=== PATIENT | female | born 1970 | race Caucasian/White ===

== ENCOUNTER 2016-10-27 16:03 | Inpatient (IN) ==
--- NOTE | 2016-10-27 16:43 | EKG Report ---
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
--- NOTE | 2016-10-27 16:45 | Emergency Department Note ---
Arrival - Arrival Chief Complaint: Chest Pain Stated Complaint: chest pains ED Nursing Triage Note: pt reports that she started having pain in center of chest that radiates under both arms. denies nausea and diaphoresis. has been seen by school nurse twice and given tums then after school given an asa and sent to er. Mode of Arrival: Ambulatory Limitations: No Limitations Source: Patient Time Seen by Provider: 10/27/16 16:33 - History of Present Illness HPI Narrative: The patient complains of dull chest pain with occasional sharp episodes across the upper anterior chest bilaterally, extending into the axilla bilaterally. She feels like the pain is also radiating into her left arm. She denies any nausea or vomiting. She has had some mild shortness of breath and some very minimal diaphoresis on her upper lip. She notes no exacerbating or relieving factors and has not had these symptoms in the past. She does have a history of mitral valve prolapse and has palpitations approximately once per week. She denies any fever, cough, rhinorrhea, sore throat or other recent illness. She has no history of high blood pressure, diabetes, high cholesterol or heart disease. She is not a smoker. She does have a history of some CAD in her family. Date of Last Menstrual Period: hyst Allergies/Adverse Reactions: Allergies Allergy/AdvReac Type Severity Reaction Status Date / Time codeine Allergy Nausea Verified 10/27/16 16:14 Home Medications: Home Medications Medication Instructions Recorded Confirmed Type Multivitamin [Multivitamins] 1 each PO DAILY 10/27/16 10/27/16 History Review of System - Review of System 12 point system: reviewed and no additional remarkable complaints except as stated - Review of System Constitutional: Present: diaphoresis (Minimal). Absent: fever Head/Ears/Nose/Throat: Absent: nasal drainage, sore throat Respiratory: Absent: cough, respiratory distress, wheezing Cardiovascular: Present: chest pain, palpitations. Absent: dyspnea on exertion , orthopnea, edema, syncope Gastrointestinal: Absent: abdominal pain, nausea, vomiting Musculoskeletal: Present: arm pain. Absent: back pain, neck pain Medical,Surgical,& Family Hx - Medical History Cardio: History of: Valvular Heart Disease (mitral valve prolapse) - Surgical History Reproductive Surgeries: Surgical HX of;: Hysterectomy - Family History Family History: noncontributory - Social History Smoking Status: Never smoker Exam Physical Examination: GENERAL: Alert. No acute distress. HEENT: Normocephalic and atraumatic. There is no nasal drainage. No pharyngeal erythema or exudate. NECK: Normal inspection. Supple. No lymphadenopathy or meningismus. LUNGS: No respiratory distress. Clear to auscultation bilaterally, no wheezes, rales or rhonchi. HEART: Regular rate and rhythm. Chest: Diffuse tenderness across the anterior chest into the axillary area bilaterally. Reproduces pain. ABDOMEN: Soft, nontender and nondistended with normoactive bowel sounds. BACK: Normal inspection. SKIN: Color normal. Warm and dry. EXTREMITIES: Nontender. Normal range of motion. No pedal edema. NEUROLOGICAL/PSYCHIATRIC: Alert and oriented -3 with normal mood and affect. Cranial nerves normal. No motor or sensory deficit. Vital Signs: Vital Signs Temperature 97.4 F L 10/27/16 16:09 Pulse Rate 71 10/27/16 16:09 Respiratory Rate 20 10/27/16 16:09 Blood Pressure 144/100 10/27/16 16:09 O2 Sat by Pulse Oximetry 100 10/27/16 16:09 Course - Reevaluation(s) Reevaluation #1: The patient is asymptomatic at present and having no chest pain. It is really surprising that her troponin and CK came back elevated as I suspected that this was chest wall pain. I have discussed this patient with Dr. Bates and will admit to the ICU where she will see her. Time: 18:10 Results - Labs CBC & BMP: 10/27/16 17:07 10/27/16 17:07 Lab Results: I have reviewed the patients labs Labs: Laboratory Tests 10/27/16 10/27/16 17:07 17:07 INR 1.0 D-Dimer, Quantitative <= 0.5 AST 54 H ALT 43 Total Creatine Kinase 371 H CK-MB (CK-2) 55.0 H CK and CKMB Interp 14.8 Troponin I 5.780 H Lipase 126.0 - Impressions EKG shows a normal sinus rhythm at 66. Chest x-ray shows no acute abnormality. Disposition Clinical Impression: Chest pain, Non-ST elevated myocardial infarction Case discussed with: patient Disposition: Disch To Home/Self Care Condition: Stable Time of Disposition: 18:11
--- NOTE | 2016-10-27 17:13 | XRay Report ---
History: Chest pain Date: 10/27/2016 Study: Chest x-ray AP portable Comparison exam: October 13, 2014 chest x-ray The cardiomediastinal silhouette and pulmonary vasculature are unremarkable. The lungs and pleural spaces are clear. The osseous structures are unremarkable. Impression: No acute cardiopulmonary process. No significant interval change PROCEDURE INTERPRETED AT [facility] DEPARTMENT OF RADIOLOGY Final Report Signed by: Dr. Maylin Smith
[2016-10-27 17:14] LABS: Basophils % 0.3 % (0.0-0.8); Eosinophils # 0.1 10*3/uL (0.0-0.87); Eosinophils % 1.2 % (0.00-10.9); Hematocrit 37.5 VOL% (35.7-47.0); Hemoglobin 13.1 GM/DL (12.0-16.0); Immature Granulocytes % 0.4 %; Immature Granulocytes Absolute 0.04 #; Lymphocytes # 2.5 10*3/uL (1.4-4.0); Lymphocytes % 25.5 % (21.3-54.2); Mean Corpuscular HGB Conc 34.9 GM/DL (32-36); Mean Corpuscular Hemoglobin 30 PG (27-34); Mean Platelet Volume 9.8 FL (9.6-12.0); Monocytes # 0.7 10*3/uL (0.11-0.8); Monocytes % 6.9 % (1.7-12.7); Neutrophils # 6.4 10*3/uL (1.4-7.4); Neutrophils % 65.7 % (38.7-73.9); Platelet Count 254 T/CUMM (130-400); Red Blood Count 4.31 MC/CUMM (3.8-5.5); Red Cell Distribution Width 13.3 % (9.3-17.3); White Blood Count 9.7 T/CUMM (4-12)
[2016-10-27 17:35] LABS: D-Dimer <= 0.5 MG/L FEU; PT Patient Result 10.7 SECS; Partial Thromboplastin Time 29.1 SECS (0-40)
[2016-10-27 17:59] LABS: Alanine Aminotransferase 43 U/L (13-56); Albumin 3.9 G/DL (3.4-5.0); Alkaline Phosphatase 55 U/L (45-117); Amylase 35 U/L (25-115); Aspartate Amino Transferase 54 U/L (0-37); Bilirubin,Total < 0.39 MG/DL (0.2-1.0); Blood Urea Nitrogen 11 MG/DL (7-18); CKMB % 14.8 %; Calcium 9.7 MG/DL (8.5-10.1); Glucose 79 MG/DL (74-106); Magnesium 1.9 MG/DL (1.8-2.4); Osmolality,Calculated 272.7 MOS/KG (273-304); Potassium 3.4 MMOL/L (3.5-5.1); Sodium 138 MMOL/L (136-145); Total Protein 7.2 G/DL (6.4-8.3)
[2016-10-27] MEDS ORDERED: ENOXAPARIN 80 MG/0.8 ML SYRINGE SUBCUT STA (18:16)
[2016-10-27] MEDS ORDERED: MAGNESIUM SULF RIDER 4 GM in PREMIX 1 EACH IV PRN (18:26)
[2016-10-27] MEDS ORDERED: MAGNESIUM SULF RIDER 2 GM in PREMIX 1 EACH IV PRN (18:26)
[2016-10-27] MEDS ORDERED: ONDANSETRON 4 MG/2 ML VIAL IV PRN (18:26)
[2016-10-27] MEDS ORDERED: PROMETHAZINE 25 MG/1 ML VIAL IM PRN (18:26)
[2016-10-27] MEDS ORDERED: MORPHINE 2 MG/1 ML SYRINGE IV PRN (18:26)
[2016-10-27] MEDS ORDERED: BISACODYL 5 MG TABLET PO PRN (18:35)
[2016-10-27] MEDS ORDERED: ALUM/MAG/SIMETH/LIDO VISC 1:1 30 ML BOTTLE PO PRN (18:35)
[2016-10-27] MEDS ORDERED: MAGNESIUM HYDROXIDE SUSP 30 ML UDCUP PO PRN (18:35)
[2016-10-27] MEDS ORDERED: NITROGLYCERIN SL 0.4 MG TABLET SL PRN (18:35)
[2016-10-27] MEDS ORDERED: ZALEPLON 5 MG CAPSULE PO PRN (18:35)
--- NOTE | 2016-10-27 18:35 | Cardiology History & Physical ---
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 Cantu is a 46 year old female without a prior cardiac history, no clear cardiac risk factors who presented to the emergency room for chest pain. 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 She began experiencing chest pressure. It was a discomfort that radiated across her bilateral shoulders, and eventually into her bilateral armpit and then the inner portion of her left arm. There were occasionally associations of diaphoresis. There was no clear triggers or alleviators. She went to the school nurse and tried taking Tums which did not resolve her symptoms. Finally, at 330 her son was called to pick her up and bring her to the emergency room. Her symptoms finally resolved at approximately 530 this evening and she is currently chest pain-free. She has not had any dyspnea on exertion, change in exercise tolerance. She does not use recreational drugs, does not smoke. She has been prescribed hormones (she has a hysterectomy) but never filled this prescription. She has no other acute complaints and her 12 point review of systems is otherwise negative in detail. She has no history of GI bleeding and no contraindication to taking dual antiplatelet therapy. Impression and plan: 1. Non-ST elevation myocardial infarction-we will initiate anticoagulation, dual antiplatelet therapy, statin therapy, beta-cindi therapy. We will check an echocardiogram and fasting lipid profile. We will proceed with left heart catheterization in the morning. I have discussed the role, risks and benefits of cardiac catheterization with the patient and she is agreeable to proceeding. We will apply Nitropaste for symptom control. Home Medications Medication Instructions Recorded Confirmed Type Multivitamin [Multivitamins] 1 each PO DAILY 10/27/16 10/27/16 History Allergies Allergy/AdvReac Type Severity Reaction Status Date / Time codeine Allergy Nausea Verified 10/27/16 16:14 12 point system: reviewed and no additional remarkable complaints except as stated Medical,Surgical,& Family Hx - Medical History Cardio: History of: Valvular Heart Disease (mitral valve prolapse) - Surgical History Reproductive Surgeries: Surgical HX of;: Hysterectomy - Social History Smoking Status: Never smoker Marital Status: Lives With:: Spouse Functional capacity: independent ambulation Cardiology Physical Exam - Constitutional Vitals: Vital Signs Temp Pulse Resp BP Pulse Ox 97.4 F L 71 20 144/100 100 10/27/16 16:09 10/27/16 16:09 10/27/16 16:09 10/27/16 16:09 10/27/16 16:09 Intake and Output 10/27/16 10/27/16 10/27/16 07:59 15:59 23:59 Other: Weight 58.967 kg Patient Weight 10/27/16 23:59 Weight 58.967 kg Exam: General appearance: normal weight, no acute distress - Head Head exam: Present: normal inspection, normocephalic, atraumatic. Absent: hematoma, laceration - Eye Eye exam: Present: EOMI. Absent: conjunctival injection, nystagmus, periorbital swelling, scleral icterus, laceration to eyelids Pupils: Present: PERRL. Absent: constricted, dilated, fixed, irregular, unequal - ENT ENT exam: Present: normal exam, normal external ear exam - Neck Neck exam: Present: normal inspection. Absent: lymphadenopathy, meningismus, tenderness, thyromegaly - Respiratory Respiratory exam: Present: clear to auscultation bilaterally. Absent: accessory muscle use, chest wall tenderness - Cardiovascular Cardiovascular exam: Present: regular rate and rhythm. Absent: carotid bruit, gallop, JVD, rubs - GI/Abdominal GI/Abdominal exam: Present: normal bowel sounds, soft. Absent: distended, firm , guarding, hernia, mass, tenderness, rebound. - Extremities Exam Extremities exam: Present: normal inspection, normal capillary refill. Absent: calf tenderness, edema - Back Exam Back exam: Present: normal inspection. Absent: muscle spasm, vertebral tenderness - Neurological Exam Neurological exam: Present: alert, oriented X3, grossly intact without resting or intention tremor - Psychiatric Psychiatric exam: Present: normal affect, normal mood - Skin Skin exam: Present: normal color, warm, dry, intact. Absent: cyanosis, diaphoretic, rash, urticaria Result/EKG - Labs CBC & BMP: 10/27/16 17:07 10/27/16 17:07 Lab Results: I have reviewed the past 24 hour labs Labs: Laboratory Results - last 24 hr 10/27/16 10/27/16 10/27/16 17:07 17:07 17:07 WBC 9.7 RBC 4.31 Hgb 13.1 Hct 37.5 MCV 87.0 MCH 30 MCHC 34.9 RDW 13.3 Plt Count 254 MPV 9.8 Neut % (Auto) 65.7 Lymph % (Auto) 25.5 [place] % (Auto) 6.9 Eos % (Auto) 1.2 Baso % (Auto) 0.3 Neut # (Auto) 6.4 Lymph # (Auto) 2.5 [place] # (Auto) 0.7 Eos # (Auto) 0.1 Baso # (Auto) 0.0 Immature Gran % 0.4 Nucleated RBC % 0.0 Immature Gran # 0.04 Nucleated RBCs # 0.00 Immature Plt Fraction 0.0 INR 1.0 PT Patient/Control Mix 10.7 D-Dimer, Quantitative <= 0.5 Circ Anticoag PTT 29.1 Sodium 138 Potassium 3.4 L Chloride 106 Carbon Dioxide 24 Anion Gap 11.4 BUN 11 Creatinine 0.60 GFR Calculation 100 BUN/Creatinine Ratio 18.00 Glucose 79 Calculated Osmolality 272.7 L Calcium 9.7 Magnesium 1.9 Total Bilirubin < 0.39 AST 54 H ALT 43 Alkaline Phosphatase 55 Total Creatine Kinase 371 H CK-MB (CK-2) 55.0 H CK and CKMB Interp 14.8 Troponin I 5.780 H Total Protein 7.2 Albumin 3.9 Globulin 3.3 Albumin/Globulin Ratio 1.1 Amylase 35 Lipase 126.0 - Diagnostic Findings Procedure: Chest x-ray: report reviewed by me - EKG EKG results: interpreted by me, sinus rhythm EKG shows: ventricular tachycardia
[2016-10-27] MEDS ORDERED: ENOXAPARIN 80 MG/0.8 ML SYRINGE SUBCUT ONE (18:38)
[2016-10-27] MEDS ORDERED: TICAGRELOR 90 MG TABLET PO ONE (19:54)
[2016-10-27] MEDS: SODIUM CHLORIDE 0.45% 1,000 ML IV SCH (20:11)
[2016-10-27] MEDS: TICAGRELOR 90 MG TABLET PO SCH (20:17)
[2016-10-27] MEDS: ATORVASTATIN 40 MG TABLET PO SCH (20:45)
[2016-10-27] MEDS: METOPROLOL TARTRATE 25 MG TABLET PO SCH (20:46)
[2016-10-27 21:20] LABS: CKMB % 14.8 %
[2016-10-27 21:23] LABS: Troponin I Only 19.2 NG/ML (0.00-0.045)
--- NOTE | 2016-10-27 22:58 | EKG Report ---
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
[2016-10-28] MEDS: ACETAMINOPHEN 325 MG TABLET PO PRN (00:05)
[2016-10-28] MEDS: NITROGLYCERIN 2% OINT 1 INCH/GM PACK TOP SCH ×3 (00:05→13:19)
[2016-10-28 01:03] LABS: CKMB % 13.8 %
--- NOTE | 2016-10-28 01:34 | EKG Report ---
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
[2016-10-28 05:26] LABS: Basophils % 0.4 % (0.0-0.8); Eosinophils # 0.1 10*3/uL (0.0-0.87); Eosinophils % 1.7 % (0.00-10.9); Hematocrit 34.2 VOL% (35.7-47.0); Hemoglobin 11.8 GM/DL (12.0-16.0); Immature Granulocytes % 0.6 %; Immature Granulocytes Absolute 0.04 #; Lymphocytes # 1.7 10*3/uL (1.4-4.0); Lymphocytes % 23.7 % (21.3-54.2); Mean Corpuscular HGB Conc 34.5 GM/DL (32-36); Mean Corpuscular Hemoglobin 30 PG (27-34); Mean Corpuscular Volume 87.7 FL (87-102); Mean Platelet Volume 10.4 FL (9.6-12.0); Monocytes # 0.6 10*3/uL (0.11-0.8); Monocytes % 8.4 % (1.7-12.7); Neutrophils # 4.6 10*3/uL (1.4-7.4); Neutrophils % 65.2 % (38.7-73.9); Platelet Count 223 T/CUMM (130-400); Red Cell Distribution Width 13.4 % (9.3-17.3); White Blood Count 7.1 T/CUMM (4-12)
[2016-10-28 05:51] LABS: Calcium 8.6 MG/DL (8.5-10.1); Magnesium 1.8 MG/DL (1.8-2.4); Osmolality,Calculated 278.3 MOS/KG (273-304); Potassium 3.7 MMOL/L (3.5-5.1)
[2016-10-28 05:53] LABS: Risk Ratio 2.88; VLDL CHOLESTEROL 16.4 MG/DL
[2016-10-28 05:54] LABS: CKMB % 13.5 %
[2016-10-28 05:57] LABS: Troponin I Only 18.2 NG/ML (0.00-0.045)
--- NOTE | 2016-10-28 07:38 | EKG Report ---
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
[2016-10-28] MEDS ORDERED: ENOXAPARIN 80 MG/0.8 ML SYRINGE SUBCUT SCH (09:00)
[2016-10-28] MEDS: TICAGRELOR 90 MG TABLET PO SCH ×2 (09:07→20:09)
[2016-10-28] MEDS: PANTOPRAZOLE 40 MG TABLET PO SCH (09:07)
[2016-10-28] MEDS: METOPROLOL TARTRATE 25 MG TABLET PO SCH (09:17)
[2016-10-28] MEDS: SODIUM CHLORIDE 0.45% 1,000 ML IV SCH ×2 (09:54→23:32)
[2016-10-28] MEDS ORDERED: HEPARIN/NACL 0.9% 2 UNITS/ML 1,000 ML IV ONE (11:09)
[2016-10-28] MEDS ORDERED: LIDOCAINE 1% 20 ML VIAL ONE (11:09)
[2016-10-28] MEDS ORDERED: SODIUM BICARBONATE 2.4 MEQ/5 ML VIAL ONE (11:11)
[2016-10-28] MEDS ORDERED: fentaNYL 100 MCG/2 ML VIAL ONE (11:29)
[2016-10-28] MEDS ORDERED: MIDAZOLAM 2 MG/2 ML VIAL ONE (11:29)
--- NOTE | 2016-10-28 11:35 | Cardiology Progress Note ---
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 EKG was unremarkable, cardiac biomarkers have been positive. October 28, 2016: The patient has done well overnight and did not have any recurrent chest pain. Nitropaste was discontinued due to hypotension. She does have a complaint of a headache. Impression and plan: 1. Non-ST elevation myocardial infarction: The patient has not had any postinfarct angina. She has received dual antiplatelet therapy, anticoagulation , statin therapy and beta blockade. We are going to proceed with left heart catheterization today. Exam (Progress Note) - Constitutional Vitals: Period Temp Pulse Resp BP Sys/Meehan Pulse Ox Last 24 Hr 97.1 F-98.3 F 53-109 12-21 74-144/43-100 97-100 Exam: General appearance: normal weight, no acute distress - Head Head exam: Present: normal inspection, normocephalic, atraumatic. Absent: hematoma, laceration - Eye Eye exam: Present: EOMI. Absent: conjunctival injection, nystagmus, periorbital swelling, scleral icterus, laceration to eyelids Pupils: Present: PERRL. Absent: constricted, dilated, fixed, irregular, unequal - ENT ENT exam: Present: normal exam, normal external ear exam - Neck Neck exam: Present: normal inspection. Absent: lymphadenopathy, meningismus, tenderness, thyromegaly - Respiratory Respiratory exam: Present: clear to auscultation bilaterally. Absent: accessory muscle use, chest wall tenderness - Cardiovascular Cardiovascular exam: Present: regular rate and rhythm. Absent: carotid bruit, gallop, JVD, rubs - GI/Abdominal GI/Abdominal exam: Present: normal bowel sounds, soft. Absent: distended, firm , guarding, hernia, mass, tenderness, rebound. - Extremities Exam Extremities exam: Present: normal inspection, normal capillary refill. Absent: calf tenderness, edema - Back Exam Back exam: Present: normal inspection. Absent: muscle spasm, vertebral tenderness - Neurological Exam Neurological exam: Present: alert, oriented X3, grossly intact without resting or intention tremor - Psychiatric Psychiatric exam: Present: normal affect, normal mood - Skin Skin exam: Present: normal color, warm, dry, intact. Absent: cyanosis, diaphoretic, rash, urticaria Result/EKG - Labs CBC & BMP: 10/28/16 04:39 10/28/16 04:39 Lab Results: I have reviewed the past 24 hour labs Labs: Laboratory Results - last 24 hr 10/27/16 10/27/16 10/27/16 17:07 17:07 17:07 WBC 9.7 RBC 4.31 Hgb 13.1 Hct 37.5 MCV 87.0 MCH 30 MCHC 34.9 RDW 13.3 Plt Count 254 MPV 9.8 Neut % (Auto) 65.7 Lymph % (Auto) 25.5 [place] % (Auto) 6.9 Eos % (Auto) 1.2 Baso % (Auto) 0.3 Neut # (Auto) 6.4 Lymph # (Auto) 2.5 [place] # (Auto) 0.7 Eos # (Auto) 0.1 Baso # (Auto) 0.0 Immature Gran % 0.4 Nucleated RBC % 0.0 Immature Gran # 0.04 Nucleated RBCs # 0.00 Immature Plt Fraction 0.0 INR 1.0 PT Patient/Control Mix 10.7 D-Dimer, Quantitative <= 0.5 Circ Anticoag PTT 29.1 Sodium 138 Potassium 3.4 L Chloride 106 Carbon Dioxide 24 Anion Gap 11.4 BUN 11 Creatinine 0.60 GFR Calculation 100 BUN/Creatinine Ratio 18.00 Glucose 79 Calculated Osmolality 272.7 L Calcium 9.7 Magnesium 1.9 Total Bilirubin < 0.39 AST 54 H ALT 43 Alkaline Phosphatase 55 Total Creatine Kinase 371 H CK-MB (CK-2) 55.0 H CK and CKMB Interp 14.8 Troponin I 5.780 H Total Protein 7.2 Albumin 3.9 Globulin 3.3 Albumin/Globulin Ratio 1.1 Triglycerides Cholesterol LDL Cholesterol VLDL Cholesterol HDL Cholesterol Heart Disease Risk Ratio Amylase 35 Lipase 126.0 10/27/16 10/27/16 10/28/16 20:33 23:55 04:39 WBC RBC Hgb Hct MCV MCH MCHC RDW Plt Count MPV Neut % (Auto) Lymph % (Auto) [place] % (Auto) Eos % (Auto) Baso % (Auto) Neut # (Auto) Lymph # (Auto) [place] # (Auto) Eos # (Auto) Baso # (Auto) Immature Gran % Nucleated RBC % Immature Gran # Nucleated RBCs # Immature Plt Fraction INR PT Patient/Control Mix D-Dimer, Quantitative Circ Anticoag PTT Sodium Potassium Chloride Carbon Dioxide Anion Gap BUN Creatinine GFR Calculation BUN/Creatinine Ratio Glucose Calculated Osmolality Calcium Magnesium Total Bilirubin AST ALT Alkaline Phosphatase Total Creatine Kinase 649 H D 675 H 568 H CK-MB (CK-2) 96.3 H D 92.9 H 76.7 H D CK and CKMB Interp 14.8 13.8 13.5 Troponin I 19.200 H D 21.000 H 18.200 H Total Protein Albumin Globulin Albumin/Globulin Ratio Triglycerides Cholesterol LDL Cholesterol VLDL Cholesterol HDL Cholesterol Heart Disease Risk Ratio Amylase Lipase 10/28/16 10/28/16 10/28/16 04:39 04:39 04:39 WBC 7.1 RBC 3.90 Hgb 11.8 L Hct 34.2 L MCV 87.7 MCH 30 MCHC 34.5 RDW 13.4 Plt Count 223 MPV 10.4 Neut % (Auto) 65.2 Lymph % (Auto) 23.7 [place] % (Auto) 8.4 Eos % (Auto) 1.7 Baso % (Auto) 0.4 Neut # (Auto) 4.6 Lymph # (Auto) 1.7 [place] # (Auto) 0.6 Eos # (Auto) 0.1 Baso # (Auto) 0.0 Immature Gran % 0.6 Nucleated RBC % 0.0 Immature Gran # 0.04 Nucleated RBCs # 0.00 Immature Plt Fraction 0.0 INR PT Patient/Control Mix D-Dimer, Quantitative Circ Anticoag PTT Sodium 141 Potassium 3.7 Chloride 109 H Carbon Dioxide 27 Anion Gap 8.7 BUN 11 Creatinine 0.50 L GFR Calculation 119 BUN/Creatinine Ratio 22.00 H Glucose 87 Calculated Osmolality 278.3 Calcium 8.6 Magnesium 1.8 Total Bilirubin AST ALT Alkaline Phosphatase Total Creatine Kinase CK-MB (CK-2) CK and CKMB Interp Troponin I Total Protein Albumin Globulin Albumin/Globulin Ratio Triglycerides 82 Cholesterol 147 LDL Cholesterol 72.0 VLDL Cholesterol 16.4 HDL Cholesterol 51 Heart Disease Risk Ratio 2.88 Amylase Lipase - Diagnostic Findings Procedure: Chest x-ray: report reviewed by me - EKG EKG results: interpreted by me, sinus rhythm
--- NOTE | 2016-10-28 11:36 | History and Physical Update ---
Sedation H&P Update - Dictation Physical: refer to H&P completed by admitting physician - Physical Exam Mental Status: alert and oriented Heart: regular rate and rhythm Lung: clear to auscultation Abdomen: within normal limits Vitals: within normal limits - Sedation Plan for Sedation: moderate Patient Consent: Procedure disscussed with patient and patinet has consented., Risks and benefits were discussed with patient,including infection,, bleeding, injury to surrounding structures, seizure, temporary nerve, Patient understands and accepts potential risks/benefits and agrees to, proceed. ASA Class: IV Airway Assessment: Class I: Soft palate, uvula, fauces, pillars visible
[2016-10-28] MEDS ORDERED: diphenhydrAMINE 50 MG/1 ML VIAL ONE (11:45)
--- NOTE | 2016-10-28 12:21 | ECHO Report ---
Vaishali Cantu Exam Date: 10/28/2016 09:17 Referring Physician: Technologist: Age: 46 Ht (in): Wt (lb): Gender: F Exam Location: [facility] Echo Indications: BP: / HR: Rhythm: Sinus Technical Quality: Fair IMPRESSIONS Normal left ventricular size and function with ejection fraction estimated to be in the 60% range Mild aortic valve sclerosis with preserved excursion Mild mitral insufficiency Trace tricuspid insufficiency at velocities suggesting systolic PA pressures less than 20 mmHg MEASUREMENTS (Male / Female) Normal Values 2D ECHO LV Diastolic Diameter PLAX 3.7 cm 4.2 - 5.9 / 3.9 - 5.3 cm LV Systolic Diameter PLAX 2.2 cm LV Fractional Shortening PLAX 39.3 % IVS Diastolic Thickness 1.0 cm 0.6 - 1.0 / 0.6 - 0.9 cm LVPW Diastolic Thickness 1.3 cm 0.6 - 1.0 / 0.6 - 0.9 cm RV Internal Dim ED PLAX 2.0 cm Aortic Root Diameter 2.3 cm LA Systolic Diameter LX 3.1 cm 3.0 - 4.0 / 2.7 - 3.8 cm DOPPLER TR Peak Velocity 181.0 cm/s TR Peak Gradient 13.1 mmHg FINDINGS Left Ventricle Right Ventricle Right Atrium Left Atrium Mitral Valve Aortic Valve Tricuspid Valve Pulmonic Valve Pericardium Aorta Jose Liu MD (Electronically Signed) Final Date: 28 October 2016 12:20
--- NOTE | 2016-10-28 12:49 | Cardiology Operative Report ---
Date of Procedure:: 10/28/16 Pre-op diagnosis: Non-ST elevation myocardial infarction Post-op diagnosis: other (No significant atherosclerosis. Haziness noted in the distal first obtuse marginal artery could represent thrombus) Procedure: 1. Selective left and right coronary angiography. 2. Left heart catheterization with left ventriculogram. 3. Right iliac angiography to rule out vascular complications. 4. Application of minx hemostasis device to the right femoral arteriotomy site. Impression: 1. No significant atherosclerosis. There is a subtle, faint haziness in a distal branch and the distal portion of the first obtuse marginal artery where the vessel caliber is less than 1 mm that could represent thrombus. This vessel appears to supply the apex. 2. Right dominant coronary arteries. 3. Ejection fraction 55 %. 4. Angiographically normal right iliac artery without evidence of vascular complications. Plan: 1. Medical management. Equipment: Diagnostic 6 Taiwanese JL4, 4 Taiwanese JR4, 6 Taiwanese pigtail catheters. Hemodynamics: Aortic pressure 99/63 mmHg, left ventricular pressure 94/14 mmHg, LVEDP 9 mmHg Sedation: Versed 1 mg, fentanyl 25 mcg, Benadryl 25 mg Procedure: After informed consent was obtained the patient was prepped and draped in sterile fashion. The right groin was infiltrated with 1% lidocaine and the right femoral artery was accessed via modified Seldinger technique using a micropuncture needle and a 6 Taiwanese femoral arterial sheath was placed. All catheter exchanges were performed over a guidewire under fluoroscopic guidance. Diagnostic 6 [place]ese JL4 and JR4 catheters were advanced to the left and right coronary arteries respectively and multiple cineangiograms were performed in varying degrees of obliquity and angulation. There was pressure waveform dampening upon introduction of the 6 Taiwanese JR4 catheter, so this was exchanged for a 4 Taiwanese JR4 catheter. Cine angiogram was performed with a 4 Taiwanese catheter. Thereafter a pigtail catheter was advanced into the left ventricle where hemodynamics were obtained followed by left ventriculogram. At conclusion of the procedure right iliac angiography was performed to rule out vascular complications. At conclusion of the procedure a minx hemostasis device was successfully applied to the right femoral arteriotomy site. Findings: 1. The left main artery is angiographically normal. 2. The left anterior descending artery extends towards the apex but does not wrap around. It becomes small and tapered from the mid to distal segment. There is a small first diagonal branch, then a larger second diagonal artery that is branching and appears to supply the lateral wall. There is no significant atherosclerosis in the LAD system. 3. There is an intermediate ramus branch that is small and free of significant disease. 4. The circumflex artery gives rise to a large, branching first marginal artery , and then 3 smaller marginal branches as it continues along the AV groove. There is no significant atheromatous disease identified. There is a region involving a distal branch of the first marginal artery, as well as the segment of the distal first marginal artery at the origin of the affected branch, that is subtly and faintly hazy. This is suspected to represent resolving thrombus. The vessel calibers at this site are less than 1 mm. The course of these vessels appears to supply the ventricular apex. 5. The right coronary artery is a dominant vessel, and free of significant disease. 6. Ejection fraction is 55 % with apical akinesis. 7. No significant mitral regurgitation. 8. No significant aortic stenosis. 9. The right iliac artery is angiographically normal without evidence of vascular complications. Contrast use: Visipaque 64 cc Fluoro time: 2.9 minutes Complications: none Specimens removed: none Devices implanted: Mynx Anesthesia: moderate conscious sedation Surgeon / Physician: Olga Bates Die Grinder: none (Sandra Hines) Estimated blood loss: minimal Specimens: none sent Condition: stable Disposition: ICU/CCU
[2016-10-28] MEDS: ASPIRIN EC 81 MG TABLET PO SCH (13:18)
[2016-10-28] MEDS: ATORVASTATIN 40 MG TABLET PO SCH (20:09)
[2016-10-29 04:38] LABS: Basophils % 0.3 % (0.0-0.8); Eosinophils # 0.2 10*3/uL (0.0-0.87); Hematocrit 34.4 VOL% (35.7-47.0); Hemoglobin 11.8 GM/DL (12.0-16.0); Immature Granulocytes % 0.3 %; Immature Granulocytes Absolute 0.03 #; Lymphocytes # 1.7 10*3/uL (1.4-4.0); Lymphocytes % 19.7 % (21.3-54.2); Mean Corpuscular HGB Conc 34.3 GM/DL (32-36); Mean Corpuscular Hemoglobin 30 PG (27-34); Mean Corpuscular Volume 88.7 FL (87-102); Mean Platelet Volume 10.2 FL (9.6-12.0); Monocytes # 0.6 10*3/uL (0.11-0.8); Monocytes % 6.8 % (1.7-12.7); Neutrophils # 6.2 10*3/uL (1.4-7.4); Neutrophils % 70.9 % (38.7-73.9); Platelet Count 216 T/CUMM (130-400); Red Blood Count 3.88 MC/CUMM (3.8-5.5); Red Cell Distribution Width 13.6 % (9.3-17.3); White Blood Count 8.7 T/CUMM (4-12)
[2016-10-29 05:16] LABS: Calcium 8.1 MG/DL (8.5-10.1); Osmolality,Calculated 278.3 MOS/KG (273-304); Potassium 3.9 MMOL/L (3.5-5.1)
[2016-10-29] MEDS ORDERED: ENOXAPARIN 40 MG/0.4 ML SYRINGE SUBCUT SCH (06:30)
[2016-10-29] MEDS: ASPIRIN EC 81 MG TABLET PO SCH (08:53)
[2016-10-29] MEDS: TICAGRELOR 90 MG TABLET PO SCH (08:53)
[2016-10-29] MEDS: PANTOPRAZOLE 40 MG TABLET PO SCH (08:54)
[2016-10-29 10:32] VITALS: BP 116/77
[2016-10-29] MEDS: ACETAMINOPHEN 325 MG TABLET PO PRN (10:54)
--- NOTE | 2016-10-29 13:59 | Discharge Summary ---
Hospital Course - Hospital Course Hospital Course: Patient is a 46-year-old white female without a prior cardiac history, and no significant cardiac risk factors, he was admitted to the hospital with non-ST elevation myocardial infarction. 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 She did not have any recurrent chest pain in the hospital. Peak troponin I was 21, peak CK-MB was 93. EKG was normal, systolic function was normal, but apical akinesis was noted on echo. She underwent cardiac catheterization on October 28, 2016 which did not reveal any significant atherosclerosis, although there was a small branch of the first obtuse marginal artery that appeared to have haziness that could be consistent with a resolving thrombus. She is being managed medically. Her postoperative course was free of complications and overall uneventful. She is going to be discharged home on medical therapy with follow- up. She did report experiencing episodes of chest fluttering which was occurring more frequently over the preceding few months. Accordingly we are going to order an outpatient event monitor. She is to follow-up with me in clinic in approximately 2 weeks. Diagnosis - Discharge Diagnosis (1) Non-ST elevated myocardial infarction Status: Acute Discharge Plan - Discharge Data Disposition: Disch To Home/Self Care Condition at Discharge: Stable Discharge Diet: heart healthy Activity: no lifting (For 1 week) Hygiene: may shower - Discharge Medications New Aspirin EC Tab 81 mg PO DAILY #30 tablet Atorvastatin [Lipitor] 10 mg PO BEDTIME #30 tablet Nitroglycerin Sl Tab [Nitrostat] 0.4 mg SL Q5M PRN #1 bottle PRN Reason: Chest Pain Ticagrelor [Brilinta] 90 mg PO BID #60 tablet Continue Multivitamin [Multivitamins] 1 each PO DAILY - Follow Up or Referral Follow Up: Olga Bates MD [Physician] - 2 Weeks (1-2 week f/u) - Forms/Instructions Additional Discharge Instructions: Please give work excuse for 2 weeks. 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 Exam - Constitutional Vitals: Period Temp Pulse Resp BP Sys/Meehan Pulse Ox Last 24 Hr 97.9 F-98.1 F 60-83 18-20 86-116/52-77 96-99 Exam: General appearance: normal weight, no acute distress - Head Head exam: Present: normal inspection, normocephalic, atraumatic. Absent: hematoma, laceration - Eye Eye exam: Present: EOMI. Absent: conjunctival injection, nystagmus, periorbital swelling, scleral icterus, laceration to eyelids Pupils: Present: PERRL. Absent: constricted, dilated, fixed, irregular, unequal - ENT ENT exam: Present: normal exam, normal external ear exam - Neck Neck exam: Present: normal inspection. Absent: lymphadenopathy, meningismus, tenderness, thyromegaly - Respiratory Respiratory exam: Present: clear to auscultation bilaterally. Absent: accessory muscle use, chest wall tenderness - Cardiovascular Cardiovascular exam: Present: regular rate and rhythm. Absent: carotid bruit, gallop, JVD, rubs - GI/Abdominal GI/Abdominal exam: Present: normal bowel sounds, soft. Absent: distended, firm , guarding, hernia, mass, tenderness, rebound. - Extremities Exam Extremities exam: Present: normal inspection, normal capillary refill. Absent: calf tenderness, edema - Back Exam Back exam: Present: normal inspection. Absent: muscle spasm, vertebral tenderness - Neurological Exam Neurological exam: Present: alert, oriented X3, grossly intact without resting or intention tremor - Psychiatric Psychiatric exam: Present: normal affect, normal mood - Skin Skin exam: Present: normal color, warm, dry, intact. Absent: cyanosis, diaphoretic, rash, urticaria Right groin is without hematoma or bruit. Femoral and dorsalis pedis pulses are 3+. Discharge Results Procedures and tests throughout hospitalization: Pending Orders 10/28/16 11:04 CL heart Routine 10/30/16 04:00 Basic Metabolic Panel w/Mg IN AM Comp Blood Count Auto Diff IN AM Labs on day of discharge: Labs from last 24 hours 10/29/16 10/29/16 04:04 04:04 WBC 8.7 RBC 3.88 Hgb 11.8 L Hct 34.4 L MCV 88.7 MCH 30 MCHC 34.3 RDW 13.6 Plt Count 216 MPV 10.2 Neut % (Auto) 70.9 Lymph % (Auto) 19.7 L [place] % (Auto) 6.8 Eos % (Auto) 2.0 Baso % (Auto) 0.3 Neut # (Auto) 6.2 Lymph # (Auto) 1.7 [place] # (Auto) 0.6 Eos # (Auto) 0.2 Baso # (Auto) 0.0 Immature Gran % 0.3 Nucleated RBC % 0.0 Immature Gran # 0.03 Nucleated RBCs # 0.00 Immature Plt Fraction 0.0 Sodium 141 Potassium 3.9 Chloride 109 H Carbon Dioxide 25 Anion Gap 10.9 BUN 10 Creatinine 0.50 L GFR Calculation 120 BUN/Creatinine Ratio 20.00 Glucose 83 Calculated Osmolality 278.3 Calcium 8.1 L Magnesium 2.0 DS: Provider Date of admission: 10/27/16 18:12 Primary care physician: . No PCP Attending physician on admission: Olga Bates, Consults: 10/27/16 18:36 Consult to Cardiac Rehabilitation [CONS] Routine Reason for Cardiac Rehabilitation: Risk Factor Modification Discharging clinician: Olga Bates, Expected date of discharge: 10/29/16
== END 2016-10-29 16:20 | disposition home or self-care (01) | DRG 282 ==
LOC: N.ED 16:03 → N.EDINP 18:12 → N.CC 19:03 → N.TELES 10-28 14:32
PROVIDERS: ADMIT Internal Medicine Cardiovascular Disease; ATTEND Internal Medicine Cardiovascular Disease
PROC: CLCCHCL (ICD-10-PCS; 2016-10-28 11:45)

== ENCOUNTER 2017-06-26 17:14 | Inpatient (IN) ==
[2017-06-26] MEDS ORDERED: ALUM/MAG/SIMETH/LIDO VISC 1:1 30 ML BOTTLE PO STA (19:11)
[2017-06-26] MEDS ORDERED: HYDROmorphone 2 MG/1 ML VIAL IV STA (19:11)
[2017-06-26] MEDS ORDERED: ONDANSETRON 4 MG/2 ML VIAL IV STA (19:11)
[2017-06-26] MEDS ORDERED: ASPIRIN 325 MG TABLET PO STA (19:11)
[2017-06-26] MEDS ORDERED: NITROGLYCERIN 2% OINT 1 INCH/GM PACK TOP STA (19:11)
[2017-06-26] MEDS ORDERED: NITROGLYCERIN 2% OINT 1 INCH/GM PACK TOP ONE (19:24)
[2017-06-26] MEDS ORDERED: ONDANSETRON 4 MG/2 ML VIAL ONE (19:24)
[2017-06-26] MEDS ORDERED: ALUM/MAG/SIMETH/LIDO VISC 1:1 30 ML BOTTLE PO ONE (19:25)
[2017-06-26] MEDS ORDERED: ASPIRIN 325 MG TABLET ONE (19:25)
[2017-06-26] MEDS ORDERED: HYDROmorphone 2 MG/1 ML VIAL ONE (19:25)
[2017-06-26 20:10] LABS: Basophils % 0.4 % (0.0-0.8); Eosinophils # 0.2 10*3/uL (0.0-0.87); Eosinophils % 2.2 % (0.00-10.9); Hematocrit 41.9 VOL% (35.7-47.0); Hemoglobin 14.2 GM/DL (12.0-16.0); Immature Granulocytes % 0.3 %; Immature Granulocytes Absolute 0.03 #; Lymphocytes # 2.8 10*3/uL (1.4-4.0); Lymphocytes % 26.1 % (21.3-54.2); Mean Corpuscular HGB Conc 33.9 GM/DL (32-36); Mean Corpuscular Hemoglobin 31 PG (27-34); Mean Corpuscular Volume 91.1 FL (87-102); Mean Platelet Volume 9.9 FL (9.6-12.0); Monocytes # 0.8 10*3/uL (0.11-0.8); Monocytes % 7.1 % (1.7-12.7); Neutrophils # 6.9 10*3/uL (1.4-7.4); Neutrophils % 63.9 % (38.7-73.9); Platelet Count 276 T/CUMM (130-400); Red Cell Distribution Width 13.5 % (9.3-17.3); White Blood Count 10.8 T/CUMM (4-12)
[2017-06-26 20:23] LABS: INR 0.9; PT Patient Result 9.8 SECS
[2017-06-26 20:28] LABS: Apearance,Urine CLOUDY (Clear); Bilirubin,Urine Negative (Negative); Blood, Urine Negative (Negative); Glucose,Urine (UA) Negative (Negative); Ketones,Urine Negative (Negative); Mucus,Urine Occasional /LPF (Occasional); Nitrite,Urine Negative (Negative); Protein,Urine Negative; RBC,Urine 2 /HPF (0-4); Squamous Epithelial Cell,Urine Moderate /HPF (0-10); Urine Color Yellow (Yellow); Urine Specific Gravity 1.016 (1.001-1.035); Urine Urobilinogen < 2.0 EU/DL (0.2-1.0); WBC,Urine 1 /HPF (0-6)
[2017-06-26 20:49] LABS: Albumin 4.1 G/DL (3.4-5.0); Bilirubin,Total 0.4 MG/DL (0.2-1.0); Calcium 8.8 MG/DL (8.5-10.1); Osmolality,Calculated 277.5 MOS/KG (273-304); Potassium 3.9 MMOL/L (3.5-5.1); Total Protein 7.2 G/DL (6.4-8.3)
[2017-06-26] MEDS ORDERED: SODIUM CHLORIDE 0.9% 1,000 ML IV SCH (22:31)
[2017-06-26] MEDS ORDERED: POTASSIUM CHLORIDE 20 MEQ TABLET PO PRN (22:31)
[2017-06-26] MEDS ORDERED: ENOXAPARIN 40 MG/0.4 ML SYRINGE SUBCUT SCH (22:31)
[2017-06-26] MEDS ORDERED: MAGNESIUM SULF RIDER 4 GM in PREMIX 1 EACH IV PRN (22:31)
[2017-06-26] MEDS ORDERED: MORPHINE 4 MG/1 ML VIAL IV PRN (22:31)
[2017-06-26] MEDS ORDERED: MAGNESIUM SULF RIDER 2 GM in PREMIX 1 EACH IV PRN (22:31)
[2017-06-27] MEDS: NITROGLYCERIN 2% OINT 1 INCH/GM PACK TOP SCH ×3 (00:26→12:55)
[2017-06-27 02:31] LABS: Basophils % 0.4 % (0.0-0.8); Eosinophils # 0.2 10*3/uL (0.0-0.87); Eosinophils % 2.2 % (0.00-10.9); Hematocrit 38.1 VOL% (35.7-47.0); Immature Granulocytes % 0.4 %; Immature Granulocytes Absolute 0.04 #; Lymphocytes # 3.2 10*3/uL (1.4-4.0); Mean Corpuscular HGB Conc 34.1 GM/DL (32-36); Mean Corpuscular Hemoglobin 31 PG (27-34); Mean Corpuscular Volume 90.3 FL (87-102); Monocytes # 0.6 10*3/uL (0.11-0.8); Neutrophils # 5.7 10*3/uL (1.4-7.4); Platelet Count 248 T/CUMM (130-400); Red Blood Count 4.22 MC/CUMM (3.8-5.5); Red Cell Distribution Width 13.5 % (9.3-17.3); White Blood Count 9.7 T/CUMM (4-12)
[2017-06-27 03:13] LABS: Alanine Aminotransferase 32 U/L (13-56); Albumin 3.5 G/DL (3.4-5.0); Alkaline Phosphatase 48 U/L (45-117); Aspartate Amino Transferase 18 U/L (0-37); Bilirubin,Total < 0.39 MG/DL (0.2-1.0); Blood Urea Nitrogen 18 MG/DL (7-18); Calcium 8.5 MG/DL (8.5-10.1); Cholesterol 119 MG/DL (50-200); Glucose 90 MG/DL (74-106); HDL Cholesterol 52 MG/DL (40-60); Osmolality,Calculated 274.8 MOS/KG (273-304); Risk Ratio 2.29; Sodium 137 MMOL/L (136-145); Total Protein 6.3 G/DL (6.4-8.3); Triglycerides 102 MG/DL (2-150); VLDL CHOLESTEROL 20.4 MG/DL
[2017-06-27] MEDS: ONDANSETRON 4 MG/2 ML VIAL IV PRN ×2 (06:53→12:37)
[2017-06-27] MEDS ORDERED: PANTOPRAZOLE 40 MG TABLET PO SCH (09:00)
[2017-06-27] MEDS ORDERED: ASPIRIN EC 81 MG TABLET PO SCH (09:00)
[2017-06-27] MEDS ORDERED: TICAGRELOR 90 MG TABLET PO SCH (09:00)
[2017-06-27] MEDS ORDERED: CHOLECALCIFEROL 1,000 UNIT TABLET PO SCH (09:00)
[2017-06-27] MEDS ORDERED: MULTIVITAMIN (CENTRUM) TABLET PO SCH (09:00)
[2017-06-27] MEDS ORDERED: ASPIRIN EC 325 MG TABLET PO SCH (09:00)
[2017-06-27] MEDS ORDERED: ACETAMINOPHEN 325 MG TABLET PO PRN (12:06)
[2017-06-27] MEDS ORDERED: KETOROLAC 30 MG/1 ML VIAL IV ONE (12:39)
[2017-06-27] MEDS ORDERED: ACETAMINOPHEN 500 MG TABLET PO SCH (13:00)
[2017-06-27] MEDS ORDERED: traMADol 50 MG TABLET PO SCH (13:00)
[2017-06-27] MEDS ORDERED: GABAPENTIN 100 MG CAPSULE PO SCH (15:00)
[2017-06-27] MEDS ORDERED: guaiFENesin/DM ER 600-30 MG TABLET PO PRN (15:17)
[2017-06-27] MEDS ORDERED: BISACODYL 5 MG TABLET PO PRN (15:17)
[2017-06-27] MEDS ORDERED: diphenhydrAMINE CAP 25 MG CAPSULE PO PRN (15:17)
[2017-06-27] MEDS ORDERED: ZALEPLON 5 MG CAPSULE PO PRN (15:17)
[2017-06-27 16:18] VITALS: BP 106/65
[2017-06-27] MEDS ORDERED: AMITRIPTYLINE 50 MG TABLET PO SCH (21:00)
[2017-06-27] MEDS ORDERED: METOPROLOL SUCCINATE XL 25 MG TABLET PO SCH (21:00)
[2017-06-27] MEDS ORDERED: ATORVASTATIN 10 MG TABLET PO SCH (21:00)
== END 2017-06-27 18:12 | disposition home or self-care (01) | DRG 313 ==
LOC: N.ED 17:14 → N.EDINP 21:32 → N.TELES 21:53
PROVIDERS: ADMIT Internal Medicine Cardiovascular Disease; ATTEND Internal Medicine Cardiovascular Disease